=== PATIENT | female | born 1965 | race Hispanic/Latino ===

== ENCOUNTER 2025-01-29 02:07 | Emergency (ER) | payer OTHER, SELFPAY ==
[2025-01-29] MEDS ORDERED: ASPIRIN 81 MG CHEWABLE TABLET ONE (02:44)
[2025-01-29 03:26] LABS: ALT/SGPT 18 U/L (13-56); AST/SGOT 11 U/L (15-37); Albumin 3.3 g/dL (3.4-5.0); Albumin/Globulin Ratio 0.8 (1.1-1.8); Alkaline Phosphatase 99 U/L (45-117); Anion Gap 8.1 mEq/L (5.0-15.0); BUN Blood Urea Nitrogen 14 mg/dL (7-18); Bicarbonate 26 mEq/L (21-32); Bilirubin Total 0.3 mg/dL (0.2-1.0); Globulin 4.1 g/dL (2.3-3.5); Glomerular Filtration Rate 91 ml/min (=/>90); Glucose Level 217 mg/dL (74-106); Potassium 3.1 mEq/L (3.5-5.1); Protein, Total 7.4 g/dL (6.4-8.2); Sodium Level 139 mEq/L (136-145); Troponin High Sensitivity 10.8 pg/mL (<58.9)
[2025-01-29 03:35] LABS: Bilirubin Direct < 0.2 mg/dL (0-0.2); Bilirubin Indirect, Calculated 0.1 mg/dL (0.2-0.8)
[2025-01-29 03:42] LABS: Absolute Basophils 0.1 K/uL (0-0.5); Absolute Eosinophils 0.3 K/uL (0-0.5); Absolute Monocytes 0.9 K/uL (0.1-1.3); Absolute Neutrophil 6.9 K/uL (1.8-8.0); Basophils % 0.8 % (0-1.3); Eosinophils % 2.4 % (0-4.4); Hematocrit 41.6 % (36.0-45.0); Hemoglobin 14.6 g/dL (12.0-15.0); Lymphocytes % 37.7 % (15.3-44.8); MCH 30.5 pg (27.0-35.0); Monocytes % 6.5 % (3.3-12.3); Neutrophils % 52.6 % (41.7-73.7); Platelets 189 thou/uL (152-406); RBC Red Blood Cell Count 4.79 M/uL (3.86-4.86)
--- NOTE | 2025-01-29 03:48 | RAD REPORT ---
PROCEDURE: XR Chest, 1 View CLINICAL INDICATION: The patient is 59 years old and is Female; Chest pain. TECHNIQUE: Frontal view of the chest. COMPARISON: None. FINDINGS: LUNGS: No discrete focal consolidation. PLEURAL SPACE: No appreciable pleural effusion or pneumothorax. MEDIASTINUM: Normal cardiomediastinal contours, allowing for technique and positioning. BONES/JOINTS: Multilevel spondylosis. VASCULATURE: Calcified atherosclerosis of the thoracic aorta. IMPRESSION: No acute findings in the chest. Electronically signed by: Chris Hensley MD 01/29/2025 03:42 AM CDT Transcribed Date/Time: 01/29/2025 3:47 AM
--- NOTE | 2025-01-29 05:36 | ER ---
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 Coronavirus vc1 screen: Client denies travel out of the [place] in the last 14 days. At this time, the client does not indicate any symptoms associated with coronavirus-19. Ebola Screen: Patient negative for fever greater than or equal to 101.5 degrees Fahrenheit, and additional compatible Ebola Virus Disease symptoms Patient denies exposure to infectious person. Patient denies travel to an Ebola-affected area in the 21 days before illness onset. No symptoms or risks identified at this time. Initial Sepsis Screen: Does the patient meet any 2 criteria? No. Patient's initial sepsis screen is negative. Does the patient have a suspected source of infection? No. Patient's initial sepsis screen is negative. Risk Assessment: Do you want to hurt yourself or someone else? Patient reports no desire to harm self or others. Onset of symptoms was January 29, 2025 at 02:00. 02:27 Method Of Arrival: Ambulatory vc1 02:27 Acuity: RULA 3 vc1 Triage Assessment: 02:33 General: Appears distressed, uncomfortable, Behavior is calm, cooperative, appropriate vc1 for age. Pain: Complains of pain in chest Pain does not radiate. Pain currently is 10 out of 10 on a pain scale. EENT: No deficits noted. No signs and/or symptoms were reported regarding the EENT system. Neuro: Level of Consciousness is awake, alert, obeys commands. Cardiovascular: Heart tones S1 S2 present Capillary refill < 3 seconds. Respiratory: Airway is patent Respiratory effort is even, unlabored, Respiratory pattern is regular, symmetrical. GI: No deficits noted. No signs and/or symptoms were reported involving the gastrointestinal system. : No deficits noted. No signs and/or symptoms were reported regarding the genitourinary system. Derm: Skin is intact, is healthy with good turgor, Skin is dry, Skin is normal, Skin temperature is warm. Musculoskeletal: Circulation, motion, and sensation intact. Range of motion: intact in all extremities. Historical: - Allergies: 02:30 No Known Allergies; vc1 - Home Meds: 02:30 losartan 100 mg oral tablet [Active]; metformin 500 mg Oral tablet [Active]; naproxen vc1 500 mg Oral tablet 2 times per day [Active]; - PMHx: 02:30 Diabetes mellitus; Hypertensive disorder; vc1 - PSHx: 02:30 section; vc1 - Immunization history:: Adult Immunizations up to date. - Infectious Disease History:: Denies. - Social history:: Smoking status: Patient reports the use of cigarette tobacco products, smokes two packs cigarettes per day. - Family history:: not pertinent. Screenin:32 [facility] ED Fall Risk Assessment (Adult) History of falling in the last 3 months, vc1 including since admission No falls in past 3 months (0 pts) Confusion or Disorientation No (0 pts) Intoxicated or Sedated No (0 pts) Impaired Gait No (0 pts) Mobility Assist Device Used No (0 pt) Altered Elimination No (0 pt) Score/Fall Risk Level 0 - 2 = Low Risk Oriented to surroundings, Maintained a safe environment, Hourly rounding (assess needs \T\ fall precautionary measures) done. Abuse screen: Denies threats or abuse. Nutritional screening: No deficits noted. Tuberculosis screening: No symptoms or risk factors identified. Assessment: 02:50 General: Appears in no apparent distress. uncomfortable, Behavior is calm, cooperative, cp4 appropriate for age. 02:50 Pain: Complains of pain in chest Pain does not radiate. Pain currently is 10 out of 10 cp4 on a pain scale. Pain began gradually. Neuro: Level of Consciousness is awake, alert, obeys commands, Oriented to person, place, time, situation. Cardiovascular: Patient's skin is warm and dry. Rhythm is sinus rhythm. Respiratory: Airway is patent Respiratory effort is even, unlabored. GI: No signs and/or symptoms were reported involving the gastrointestinal system. : No signs and/or symptoms were reported regarding the genitourinary system. EENT: No signs and/or symptoms were reported regarding the EENT system. Derm: No signs and/or symptoms reported regarding the dermatologic system. Musculoskeletal: No signs and/or symptoms reported regarding the musculoskeletal system. Vital Signs: 02:27 BP 165 / 87; Pulse 78; Resp 18; Temp 97.8; Pulse Ox 100% ; Weight 70.76 kg; Height 4 vc1 ft. 11 in. ; Pain 10/10; 04:31 BP 132 / 65; Pulse 80; Resp 18; Pulse Ox 98% ; cp4 02:27 Body Mass Index 31.51 (70.76 kg, 149.86 cm) vc1 02:27 Pain Scale: Adult vc1 ED Course: 02:08 Patient arrived in ED. mr 02:09 Leland Quinn MD is Attending Physician. rt 02:30 Triage completed. vc1 02:32 Arm band placed on right wrist. vc1 02:33 Patient maintains SpO2 saturation greater than 95% on room air. vc1 02:36 Patient has correct armband on for positive identification. Bed in low position. Call vc1 light in reach. hospital monitor on. Pulse ox on. NIBP on. 02:39 Vibha Tafoya is Primary Nurse. cp4 02:45 Missed attempt(s): 22 gauge in left forearm. Bleeding controlled, band aid applied, td1 catheter tip intact. 02:50 Provided Education on: chest pain. cp4 02:50 Initial lab(s) drawn, by me, sent to lab. td1 02:50 Inserted saline lock: 20 gauge in left antecubital area, using aseptic technique. td1 02:50 No provider procedures requiring assistance completed. intact, bleeding controlled, No cp4 redness/swelling at site. Pressure dressing applied. 03:13 XRAY Chest (1 view) In Process Unspecified. EDMS 05:36 Oren Bourne MD is Referral Physician. rt Administered Medications: 02:48 Drug: Aspirin PO Chewable Tablet 324 mg PO once; 81 mg tablets x 4 Route: PO; cp4 05:45 Follow up: Response: No adverse reaction cp4 Medication: 02:36 VIS not applicable for this client. vc1 Outcome: 02:50 Discharged to home ambulatory, cp4 02:50 Condition: stable 02:50 Discharge instructions given to patient, family, Instructed on discharge instructions, follow up and referral plans. Demonstrated understanding of instructions, follow-up care, 05:36 Discharge ordered by MD. rt 05:45 Patient left the ED. cp4 Signatures: Dispatcher [employer] EDLA Rossana Mckeon, Josafat Reg Vilma Hawkins, RN RN vc1 Leland Quinn MD MD rt Vibha Tafoya cp4 Chai Avery td1 Corrections: (The following items were deleted from the chart) 02:59 02:57 Inserted saline lock: 20 gauge in left antecubital area, using aseptic technique. td1 td1
--- NOTE | 2025-01-29 05:36 | EDPHYS ---
Physician Documentation [facility] Name: Josette King Age: 59 yrs Sex: Female : 1965 Arrival Date: 01/29/2025 Time: 02:07 Bed 16 Private MD: ED Physician Leland Quinn HPI: 01/29 03:41 This 59 yrs old Female presents to ER via Ambulatory with complaints of Chest rt Pain. 03:41 Patient presents to the ED with 3 episodes of chest pain this weekend that occurred at rt nighttime, states that the worst episode happened tonight, lasting for about 10 minutes, is associated numbness to the right arm. States the chest pain is since resolved. Denies other acute complaints at this time, symptoms are moderate in severity, no other aggravating or alleviating factors.. Historical: - Allergies: 02:30 No Known Allergies; vc1 - Home Meds: 02:30 losartan 100 mg oral tablet [Active]; metformin 500 mg Oral tablet [Active]; naproxen vc1 500 mg Oral tablet 2 times per day [Active]; - PMHx: 02:30 Diabetes mellitus; Hypertensive disorder; vc1 - PSHx: 02:30 section; vc1 - Immunization history:: Adult Immunizations up to date. - Infectious Disease History:: Denies. - Social history:: Smoking status: Patient reports the use of cigarette tobacco products, smokes two packs cigarettes per day. - Family history:: not pertinent. ROS: 03:41 Constitutional: Negative for fever, chills, and weight loss, Respiratory: Negative for rt shortness of breath, cough, wheezing, and pleuritic chest pain, Abdomen/GI: Negative for abdominal pain, nausea, vomiting, diarrhea, and constipation, MS/Extremity: Negative for injury and deformity, Skin: Negative for injury, rash, and discoloration, Neuro: Negative for headache, weakness, numbness, tingling, and seizure, 03:41 Cardiovascular: Positive for chest pain, Negative for edema, Exam: 03:41 Constitutional: This is a well developed, well nourished patient who is awake, alert, rt and in no acute distress. Head/Face: Normocephalic, atraumatic. Chest/axilla: Normal chest wall appearance and motion. Nontender with no deformity. No lesions are appreciated. Cardiovascular: Regular rate and rhythm with a normal S1 and S2. No gallops, murmurs, or rubs. Normal PMI, no JVD. No pulse deficits. Respiratory: Lungs have equal breath sounds bilaterally, clear to auscultation and percussion. No rales, rhonchi or wheezes noted. No increased work of breathing, no retractions or nasal flaring. Abdomen/GI: Soft, non-tender, with normal bowel sounds. No distension or tympany. No guarding or rebound. No evidence of tenderness throughout. Skin: Warm, dry with normal turgor. Normal color with no rashes, no lesions, and no evidence of cellulitis. MS/ Extremity: Pulses equal, no cyanosis. Neurovascular intact. Full, normal range of motion. Neuro: Awake and alert, GCS 15, oriented to person, place, time, and situation. Cranial nerves II-XII grossly intact. Motor strength 5/5 in all extremities. Sensory grossly intact. Cerebellar exam normal. Normal gait. 03:41 ECG was reviewed by the Attending Physician. Vital Signs: 02:27 BP 165 / 87; Pulse 78; Resp 18; Temp 97.8; Pulse Ox 100% ; Weight 70.76 kg; Height 4 vc1 ft. 11 in. ; Pain 10/10; 04:31 BP 132 / 65; Pulse 80; Resp 18; Pulse Ox 98% ; cp4 02:27 Body Mass Index 31.51 (70.76 kg, 149.86 cm) vc1 02:27 Pain Scale: Adult vc1 MDM: 02:32 Medical Screening Exam initiated rt 05:52 Differential diagnosis: ACS, pneumonia, nonspecific chest pain. HEART Score: History: rt Moderately Suspicious (1), ECG: Normal (0), Age: > 45 and < 65 years (1), Risk Factors: 1 or 2 risk factors (1), Troponin: < or = 1 x Normal Limit (0), Total Score = 3. The patient was given aspirin in the Emergency Department. Data reviewed: vital signs, nurses notes, lab test result(s), EKG, radiologic studies. Consideration of Admission/Observation Escalation of care including admission/observation considered. Recommended patient be admitted for further restratification, patient declines at this stating that she would rather follow-up as an outpatient, repeat troponin was obtained and is unremarkable. Will send patient to follow-up with cardiology in the outpatient setting, strict return precautions were discussed.. I considered the following discharge prescriptions or medication management in the emergency department Medications were administered in the Emergency Department. See MAR. Independent interpretation of the following test(s) in the Emergency Department X-Ray: My interpretation is No pneumonia seen on interpretation of x-ray images. Test considered but Not performed: CT: Low suspicion for pulmonary embolus, CT angiogram not indicated. Care significantly affected by the following chronic conditions: Diabetes, Hypertension. Counseling: I had a detailed discussion with the patient and/or guardian regarding the historical points, exam findings, and any diagnostic results supporting the discharge/admit diagnosis, lab results, radiology results, the need for outpatient follow up, to return to the emergency department if symptoms worsen or persist or if there are any questions or concerns that arise at home. Response to treatment: the patient's symptoms have resolved after treatment, the patient's pain is gone. 01/29 02:38 Order name: Basic Metabolic Panel; Complete Time: 03:48 rt 01/29 02:38 Order name: CBC with Diff rt 01/29 02:38 Order name: LFT's; Complete Time: 03:48 rt 01/29 02:38 Order name: Troponin HS; Complete Time: 03:48 rt 01/29 04:27 Order name: Troponin High Sensitivity; Complete Time: 05:34 rt 01/29 02:38 Order name: XRAY Chest (1 view); Complete Time: 03:48 rt 01/29 02:38 Order name: EKG; Complete Time: 02:38 rt 01/29 02:38 Order name: Cardiac monitoring; Complete Time: 02:39 rt 01/29 02:38 Order name: EKG - Nurse/Tech; Complete Time: 02:40 rt 01/29 02:38 Order name: IV Saline Lock; Complete Time: 02:40 rt 01/29 02:38 Order name: Labs collected and sent; Complete Time: 02:40 rt 01/29 02:38 Order name: O2 Per Protocol; Complete Time: 02:40 rt 01/29 02:38 Order name: O2 Sat Monitoring; Complete Time: 02:40 rt EC:41 Rate is 88 beats/min. Rhythm is regular, Normal Sinus Rhythm with No ectopy. QRS [place] rt is Normal. OK interval is normal. QRS interval is normal. QT interval is normal. No Q waves. No ST changes noted. Interpreted by me. Administered Medications: 02:48 Drug: Aspirin PO Chewable Tablet 324 mg PO once; 81 mg tablets x 4 Route: PO; cp4 05:45 Follow up: Response: No adverse reaction cp4 Disposition Summary: 01/29/25 05:36 Discharge Ordered Notes: Location: Home rt Problem: new rt Symptoms: have improved rt Condition: Stable rt Diagnosis - Chest pain, unspecified rt Followup: rt - With: Oren Bourne MD - When: 2 - 3 days - Reason: Discharge Instructions: - Discharge Summary Sheet rt - Nonspecific Chest Pain, Adult rt Forms: - Medication Reconciliation Form rt - Antibiotic Education rt - Prescription Opioid Use rt - Patient Portal Instructions rt - Leadership Thank You Letter rt Signatures: Dispatcher [employer] Vilma Waller RN RN vc1 Leland Quinn MD MD rt Vibha Tafoya cp4
[2025-01-29 05:54] VITALS: TEMP 97.8
[2025-01-29 06:00] VITALS: BP 132/65; O2SAT 98
[2025-01-29 09:04] LABS: Blood Morphology Comment NOT SEEN (NOT SEEN); Platelet Estimate ADEQ; White Blood Cell Scan OK (OK)
== END 2025-01-29 05:45 | disposition home or self-care (01) ==
LOC: ER 02:07
DX: R07.9 Chest pain, unspecified (principal); I10 Essential (primary) hypertension; F17.210 Nicotine dependence, cigarettes, uncomplicated
CPT/HCPCS: 36415; 71045; 80048; 80076; 84484; 85025; 93005; 99284